=== PATIENT | male | born 1990 | race Caucasian/White ===

== ENCOUNTER 2018-01-04 15:12 | Emergency (ER) | payer OTHER ==
[~2018-01-04] VITALS: Ht 193 cm; Wt 93.9 kg
[2018-01-04] MEDS ORDERED: ZANTAC 150MG T150 MG PO (15:28)
[2018-01-04] MEDS ORDERED: IBUPROFEN 800800 M1 PO (16:27)
[2018-01-04] MEDS ORDERED: NORCO 5-325 TA1 EAC1 PO (16:27)
[2018-01-04 16:41] VITALS: BP 130/65
== END 2018-01-04 16:42 | disposition home or self-care (01) ==
LOC: M.ERS 15:12
DX: S43.102A Unspecified dislocation of left acromioclavicular joint, initial encounter (principal); F17.200 Nicotine dependence, unspecified, uncomplicated; Z90.89 Acquired absence of other organs; W18.39XA Other fall on same level, initial encounter; Y92.89 Other specified places as the place of occurrence of the external cause; Y99.0 Civilian activity done for income or pay; Y99.8 Other external cause status